=== PATIENT | female | born 1965 | race Caucasian/White ===

== ENCOUNTER → 2022-05-03 | Outpatient (CLI) | payer MEDICAID, SELFPAY ==
--- NOTE | 2022-05-03 09:53 | CDU_ITS ---
Reason For Study: TIA Rt. Velocities/BP Lt. Velocities/BP Prox CCA 83.7/24.2 cm/sec. Prox CCA 105.1/30.3 cm/sec. Mid CCA 84.6/32.7 cm/sec. Mid CCA 114.6/39.7 cm/sec. Dist CCA 69.5/23.2 cm/sec. Dist CCA 92.5/28.6 cm/sec. Prox ICA 76.1/31.7 cm/sec. Prox ICA 76.5/28.1 cm/sec. Mid ICA 102.9/41.3 cm/sec. Mid ICA 83.1/36.9 cm/sec. Dist ICA 101.8/46.8 cm/sec. Dist ICA 102.9/42.4 cm/sec. Rt. ICA/CCA = 102.9/84.6=1.2. Lt. ICA/CCA = 102.9/114.6=0.9. Prox ECA 81.8/19.5 cm/sec. Prox ECA 109.7/22.5 cm/sec. Rt. Vert. 61.0/24.2 cm/sec. Lt. Vert. 42.7/19.1 cm/sec. Right Extracranial There is no significant atherosclerotic plaque noted in the right common carotid artery. There is heterogeneous, irregular atherosclerotic plaque noted in the right internal carotid artery. There is no significant atherosclerotic plaque noted in the right external carotid artery. Antegrade flow is noted in the right vertebral artery. Left Extracranial There is no significant atherosclerotic plaque noted in the left common carotid artery. There is no significant atherosclerotic plaque noted in the left internal carotid artery. There is no significant atherosclerotic plaque noted in the left external carotid artery. Antegrade flow is noted in the left vertebral artery. Procedure Carotid Duplex [id number]. This is a Carotid Duplex examination using B-mode, color flow and specral Doppler. Exam performed in department. VL/Carotid Duplex Ultrasound Interpretation Summary Irregular heterogenous plaque at the proximal right internal carotid artery wit h less than 50% stenosis Less than 50% stenosis right external carotid artery Irregular plaque at the proximal left internal carotid artery with less than 50 % stenosis Less than 50% stenosis left external carotid artery Patent and antegrade vertebrals bilaterally Ordering Physician: Lul Hummel Referring Physician: OTD Performed By: Brigitte Santoro, PERRI, RVT
== END | disposition home or self-care (01) ==
PROVIDERS: Referring Provider Surgery; Visit Provider Surgery
DX: Z86.73 Personal history of transient ischemic attack (TIA), and cerebral infarction without residual deficits (principal)
CPT/HCPCS: 93880

== ENCOUNTER → 2022-05-04 | Outpatient (CLI) | payer MEDICAID, SELFPAY ==
--- NOTE | 2022-05-04 16:47 | STRESSREP_ITS ---
Stress Test Report Date: 05/04/2022 Procedure: Exercise tolerance test/imaging study Indications: Preop evaluation Consent: Per the patient Procedure: The patient exercised on a Chetan protocol for 3 minutes achieving a peak heart rate of 139 bpm (85% predicted maximal heart rate) with a peak blood pressure 172/74 mmHg and a peak MET capacity of 4.6 METs. The baseline ECG demonstrated normal sinus rhythm. The peak exercise ECG demonstrated no significant ischemic changes. EKG during recovery revealed no significant ischemic changes [There were no cardiac dysrhythmias pretest, during exercise, or recovery]. The functional capacity was considered decreased for age. There was [no complaint of chest discomfort during exercise or recovery]. The examination was discontinued secondary to shortness of breath. Impression: 1. Technically adequate (percent predicted maximal heart rate greater than 85%) exercise tolerance test 2. Stress test is negative for exercise-induced EKG changes of ischemia 3. The test test is negative for exercise-induced chest pain 4. Functional capacity is decreased for age 5. Nuclear images pending Myocardial perfusion imaging study: Technique: The patient was injected with 11.9 mCi of technetium 99m Cardiolite and subsequently rest SPECT Cardiolite nuclear imaging was obtained in the hor izontal long, vertical long, and short axis views. The patient exercised on a Chetan protocol. Please see above for details. The patient was injected with 35.2 mCi of technetium 99m Cardiolite and subsequently stress SPECT Cardiolite nuclear imaging was obtained in the horizontal long, vertical long, and short axis views. A gated Cardiolite study at peak stress was obtained. Interpretation: Rest and stress SPECT Cardiolite nuclear imaging status post realignment, normalization, and attenuation correction, demonstrates overall normal myocardial radioisotope uptake. The gated Cardiolite study demonstrates no significant regional wall motion abnormalities. The reported LVEF is greater than 70%. Impression: 1. There is no evidence of significant ischemia or infarction. 2. The gated Cardiolite study reports an LVEF of greater than 70%. This note was generated with [employer] software. It may contain incorrect words, spelling, and punctuation that were not noted in checking the note before signing.
== END | disposition home or self-care (01) ==
LOC: CVS 06:25
PROVIDERS: Visit Provider Surgery
DX: Z01.818 Encounter for other preprocedural examination (principal)
CPT/HCPCS: 78452; 93017; A9500; A4216

== ENCOUNTER → 2022-05-08 | Outpatient (CLI) | payer MEDICAID, SELFPAY ==
--- NOTE | 2022-05-08 10:31 | MRI_ITS ---
STUDY: MRI BRAIN WITH AND WITHOUT CONTRAST REASON FOR EXAM: Female, 56 years old. BILATERAL BREASTS CANCERS ?METS VS 2 PRIMARIES TECHNIQUE: Standardized multiplanar fat and water weighted pulse sequences were obtained. IV 20ml clariscan was administered for the contrast portion of the examination. COMPARISON: None. FINDINGS: Normal size of the ventricles and extra-axial spaces for the patient''s age. There are multiple white matter hyperintensities, distributed throughout the deep white matter tracts of the cerebral hemispheres, consistent with mild to moderate chronic white matter ischemic changes. Normal T2* images of the brain without demonstrated susceptibility artifact. There is no demonstrated hemosiderin stain. There is no evidence for recent intracranial ischemia or other cause of cytotoxic edema on diffusion weighted imaging (DWI). There are no suspicious or invasive brain lesions or abnormal enhancement. No skull lesions are present. Normal bilateral basal ganglia. Normal thalami. There is no extra-axial fluid accumulation. Normal flow voids within the major intracranial circulation suggesting patency by spin echo criteria. Normal venous enhancement. There is no enhancing intra-axial or extra-axial abnormality. Normal sella turcica, pituitary gland, infundibular stalk, optic chiasm and hypothalamus. Normal tectal plate and pineal gland. Normal midbrain, justyn and medulla. Normal cerebellum. Normal basal cisterns. Normal bilateral temporal bones. Normal bilateral internal auditory canals. No demonstrated orbital abnormality, within the constraints of a routine brain study. Normal visualized paranasal sinuses. Normal calvarium and skull base. Normal visualized soft tissue structures. Normal visualized upper cervical spine. MRI/Brain W/WO Contrast IMPRESSION: 1. Mild to moderate chronic ischemic changes of the brain, as described above. 2. No evidence of a primary or metastatic lesion of the brain on the current exam. Electronically Signed: Bear Cox MD at 15:04 EST Reading Location ID and State: [address] [place] [address] , Service support ,
== END | disposition home or self-care (01) ==
PROVIDERS: Referring Provider Surgery; Visit Provider Surgery
DX: C50.911 Malignant neoplasm of unspecified site of right female breast (principal); C50.912 Malignant neoplasm of unspecified site of left female breast
CPT/HCPCS: 70553; A9575

== ENCOUNTER 2022-05-23 15:20 | Observation (INO) | payer MEDICAID, SELFPAY ==
--- NOTE | 2022-05-18 08:44 | EKG12_ITS ---
Test Reason : PREOP Blood Pressure : / mmHG Vent. Rate : 072 BPM Atrial Rate : 072 BPM P-R Int : 164 ms QRS Dur : 082 ms QT Int : 386 ms P-R-T Axes : 027 000 042 degrees QTc Int : 422 ms Normal sinus rhythm Normal ECG Confirmed by ROSA OSBORNE, GUILHERME ([id number]), news editor WENDY RODRIGUEZ ([id number]) on 05/19/2022 10:20:06 AM Referred By: PEPE LARA Confirmed By:GUILHERME LEE MD
[2022-05-23] VITALS (17 sets, daily range): BP systolic 120–160; BP diastolic 61–91; PULSE 62–94; RESP 16–18; TEMP 36.5–37.3; O2SAT 92–98; BMI 35.2; BMI 34.7
--- NOTE | 2022-05-23 | IMM_PTH ---
PATIENT: OMKAR PHILLIPS LOC: MS3 U#:[id number] AGE/SX: 56/F [place] [facility] [place]: Dr. Lul Hummel MD : [id number] BED: 1 DIS: 05/24/2022 SPEC #: [id number] RECD: 05/26/22 14:13 STATUS: VAIBHAV REQ #: [id number] JUAN JOSÉ: 05/23/22 00:[address]: Lul Hummel DEPT: IMMUNOHISTOCHEMISTRY RECD BY: Brittney Perez Tissues: A - Axillary lymph node, NOS C - Axillary lymph node, NOS D - Axillary lymph node, NOS E - Left breast, NOS Procedures: CALPONIN-1 (add) CK7 (add) CK8 (add) E-CAD (add) ER (add) HER2 ORALIA (add) KI-67 (add) VA (add) Pankeratin (initial) Pankeratin (add) P40 (add) PHYSICIAN & [address] [address] SPECIMEN INFORMATION: Tissue Source: A ? Right axillary sentinel lymph node, C ? Left axillary sentinel lymph nodes D ? Additional left axillary sentinel lymph nodes, E ? Left breast Clinical Info: Bilateral breast cancer, ER positive Specimen Number: [id number] A1-A11, C1-C6, D1-D6 and E13 CPT code: 60628 x4, 06241 x26, 69495 x3 METHODOLOGY: Deparaffinized sections of prefer/formalin-fixed tissue or PAP/DQ stained slides are incubated with monoclonal/polyclonal antibodies/oligonucleotide probes. Localization is made via biotin free immunoperoxidase method. Appropriate controls are performed and reacted as expected. Results on target cell population are indicated in the following table: RESULTS: ANTIBODY / CLONE RESULT Block A1 AE1-3 (AE1/AE3/PCK26) negative CK7 (OV-TL12/30) negative Block A2 AE1-3 (AE1/AE3/PCK26) negative CK7 (OV-TL12/30) negative Block A3 AE1-3 (AE1/AE3/PCK26) negative CK7 (OV-TL12/30) negative Block A4 AE1-3 (AE1/AE3/PCK26) negative CK7 (OV-TL12/30) negative Block A5 AE1-3 (AE1/AE3/PCK26) negative CK7 (OV-TL12/30) negative Block A6 AE1-3 (AE1/AE3/PCK26) negative CK7 (OV-TL12/30) negative Block A7 AE1-3 (AE1/AE3/PCK26) negative CK7 (OV-TL12/30) negative Block A8 AE1-3 (AE1/AE3/PCK26) negative CK7 (OV-TL12/30) negative Block A9 AE1-3 (AE1/AE3/PCK26) negative CK7 (OV-TL1230) negative Block A10 AE1-3 (AE1/AE3/PCK26) negative CK7 (OV-TL1230) negative Block A11 AE1-3 (AE1/AE3/PCK26) negative CK7 (OV-TL1230) negative Block C1 AE1-3 (AE1/AE3/PCK26) negative CK7 (OV-TL30) negative Block C2 AE1-3 (AE1/AE3/PCK26) negative CK7 (OV-TL30) negative Block C3 AE1-3 (AE1/AE3/PCK26) negative CK7 (OV-TL30) negative Block C4 AE1-3 (AE1/AE3/PCK26) negative CK7 (OV-TL30) negative Block C5 AE1-3 (AE1/AE3/PCK26) negative CK7 (OV-TL05/19) negative Block C6 AE1-3 (AE1/AE3/PCK26) negative CK7 (OV-TL30) negative Block D1 AE1-3 (AE1/AE3/PCK26) negative CK7 (OV-TL30) negative Block D2 AE1-3 (AE1/AE3/PCK26) negative CK7 (OV-TL30) negative Block D3 AE1-3 (AE1/AE3/PCK26) negative CK7 (OV-TL30) negative Block D4 AE1-3 (AE1/AE3/PCK26) negative CK7 (OV-TL30) negative Block D5 AE1-3 (AE1/AE3/PCK26) negative CK7 (OV-TL1230) negative Block D6 AE1-3 (AE1/AE3/PCK26) negative CK7 (OV-TL1230) negative Block E13 AE1-3 (AE1/AE3/PCK26) positive CK7 (OV-TL1230) positive CK8 (49osggH06) positive E-Cad (ECH-6) positive Calponin-1 (VJ274L) negative P40 (BC28) negative Ki-67 (30-9) positive, 5% MORPHOMETRIC ANALYSIS ER (clone 6F11) >95%, strong intensity VA (clone 16/1E2) 0 Her-2Neu (clone CB11) 0 The prognostic test for HER2 is performed on formalin-fixed paraffin embedded tissue. A 3+ (positive) staining pattern is defined as intense, homogeneous, complete, circumferential membranous staining in >10% of contiguous tumor cells. A similar weak (2+) staining pattern is interpreted as equivocal. JADYN follow-up testing is recommended for all equivocal cases. Positivity/negativity for ER/VA is reported if > or < 1% of the tumor cells are immuno- reactive, respectively. The ASCO/CAP criteria is used for scoring. Reference: Journal of Clinical Oncology, 2013; 31:8095-9970 & 2010; 16:9358-8883. Duration of fixation: 24Hrs; Sample Adequate: Yes. These assays have not been validated on decalcified tissues. Results should be interpreted with caution given the likelihood of false negativity on decalcified specimens. These tests were developed and their performance characteristics determined by [facility]. They may not have been cleared or approved by the U.S. Food and Drug Administration. The FDA has determined that such clearance or approval is not necessary. The above immunohistochemical/dualISH markers are ordered and reviewed by the Pathologist. INTERPRETATION: A. Right axillary sentinel lymph node, biopsy: Thirteen of 13 lymph nodes, negative for carcinoma. C. Left axillary sentinel lymph nodes, biopsy: Two out of two lymph nodes, negative for carcinoma. D. Additional left axillary sentinel lymph nodes, biopsy: One out of one lymph node, negative for carcinoma. E. Left breast, mastectomy: Invasive ductal carcinoma, grade 1. Ductal carcinoma in situ, grade 1. Positive for estrogen receptors (favorable prognostic indicator). Negative for progesterone receptors (unfavorable prognostic indicator). Negative for overexpression of NBM5bdg. AM:adalgisa 05/29/2022 Case has been reviewed in consultation with Dr. Kothari who concurs with the above diagnosis. IDC:SJ
[2022-05-23] MEDS: Lactated Ringers 1,000 ML 15 ML IV ×3 (07:30→14:45)
--- NOTE | 2022-05-23 08:00 | NM_ITS ---
PROCEDURE: NUCLEAR MEDICINE Injection [place] Node - RIGHT breast(s). REASON FOR EXAM: Female, 56 years old. Right breast cancer. TECHNIQUE: [place] node localization using radionuclide methods of the RIGHT breast(s) was performed following subcutaneous administration of 1.1 mCi of of sulfur colloid Tc-99m. COMPARISON STUDIES : NM - None. CR - Not available for review at this time. CT - Not available for review at this time. MR - Not available for review at this time. US - Not available for review at this time. FINDINGS: 1.1 mCi of technetium labeled sulfur colloid was injected subcutaneously in 4 equal aliquots in the perihilar region. NM/Lymph Node Injection Only IMPRESSION: Subcutaneous injection of 1.1 mCi of technetium labeled sulfur colloid in 4 equal aliquots in the periareolar region. Electronically Signed: Chemo Petit MD at 15:31 EST ,
--- NOTE | 2022-05-23 08:00 | NM_ITS ---
STUDY: Breast Specific Gamma Imaging (BSGI) REASON FOR EXAM: Female, 56 years old. Left breast cancer. TECHNIQUE: BSGI molecular imaging of both breasts was performed following subcutaneous administration of 1.1 mCi of Sestamibi Tc-99m. Imaging was started 10 minutes after injection. COMPARISON: None. FINDINGS: 1.1 mCi of technetium labeled sulfur colloid was injected subcutaneously in 4 equal aliquots in the left periareolar region. NM/Lymph Node Injection Only IMPRESSION: Subcutaneous injection of 1.1 mCi of technetium labeled sulfur colloid for left sentinel node imaging Electronically Signed: Chemo Petit MD at 14:59 EST ,
--- NOTE | 2022-05-23 09:50 | PCM.HP.BLA ---
History and Physical Date of Admission: 05/23/22 Chief Complaint: discuss results/surgery Is patient in pain?: No Allergies codeine Allergy (Mild, Verified 05/08/22 09:53) Rash Medications meloxicam 7.5 mg tablet 7.5 mg PO DAILY 04/25/22 [History Confirmed 05/08/22] PFSH Medical History? Bilateral breast cancer Hx TIA/stroke w/o resid Neck mass Neuropathy Surgical History? History of knee surgery History of partial hysterectomy Previous section Family History? Mother Colon cancerBrother Cancer of kidneyGrandfather Lung cancerFather ALC (alcoholic liver cirrhosis) Social History? household members:? children number of children:? 2 current occupational status:? disabled Smoking Status:? Current every day smoker tobacco type: cigarettes Tobacco: How many years used:? 40 how long ago did patient quit smoking:? <[id number], [id number] alcohol intake:? never substance use type:? does not use HPI HPI HPI: 56-year-old female returns to discuss biopsy-proven bilateral breast cancer.? The patient has been seen by Dr. Mayra Zelaya on April 27, 2022.Per his note genetic testing was negative.? As of April 27, 2022 white blood cell count was 9.9 hemoglobin elevated at 16.6 with hematocrit elevated at 49.7 likely secondary to her chronic cigarette smoking.? BUN 17 and creatinine 0.88.? Total bilirubin 0.3 with an AST of 21 and an ALT slightly elevated at 57 and an alkaline phosphatase slightly elevated at 136.? On May 04, 2022 she had a stress test no evidence of significant ischemia or infarction with an ejection fraction of greater than 70%.? On May 03 she had carotid duplex imaging and there was plaque at the proximal right internal carotid artery with less than 50% stenosis and plaque at the proximal left internal carotid artery with less than 50% stenosis.? On May 03, 2022 she had PET/CT imaging.? There is felt to be a 19.9 mm area of increased uptake right breast with an additional area in the lateral right breast.? There is no discussion of any finding of the left breast although she has biopsy-proven in this area.? Bilateral axilla unremarkable. The patient has not yet scheduled for her brain MRI until May 29, 2022.? She has received delayed insurance approval. My previous notes reflect the following Visit Reasons:?INVASIVE DUCTAL CARCINOMA SECOND OPINION Chief Complaint: invasive ductal carcinoma second opinion Is patient in pain?: No Allergies codeine Allergy (Mild, Verified 04/25/22 11:15) Rash Medications meloxicam 7.5 mg tablet 7.5 mg PO DAILY 04/25/22 [History Confirmed 04/25/22] PFSH Medical History?(Updated 04/25/22 @ 11:[address] Lul Hummel MD) Bilateral breast cancer Hx TIA/stroke w/o resid Family History?(Updated 04/25/22 @ 10:33 by Marce Arevalo) Mother Colon cancer Social History Smoking Status:? Current every day smoker tobacco type: cigarettes alcohol intake:? never substance use type:? does not use HPI HPI HPI: 56-year-old female.? She is requesting surgical consultation regarding biopsy-proven bilateral breast cancer.? Patient is age 56.? G2, .? Menarche at age 13.? First child born when she was 30.? Minimal breast-feeding.? Family history negative for breast cancer.? She has not been on any estrogen medication. The patient had detected the right breast lesion by rolling over on the right side detecting acute pain at the right nipple and noted that it was inverted. The patient has been seen by Dr. Lei at [facility] breast surgeon specialist.? The patient is interested if possible at converting her care to us locally here at [facility] It is of note that she is a cigarette smoker.? She states that she has decreased to half a pack per day. She also states that she has been evaluated for TIAs she states that she develops memory lapses.? She does not recall having any evaluation of her carotid arteries.? She is not on any anticoagulant. April 04, 2022 she had bilateral diagnostic mammograms.? This was for right breast pain.? The right breast had irregular masses immediately in the subareolar position with nipple retraction.? Targeted ultrasound was performed.? At the right breast there is 9 o'clock position 2 is 2 adjacent masses 1 measuring 1.1 x 1.1 x 1 cm and the other 1 x 1.6 x 1.2 cm.? There was some concern I guess clinically about a fullness of the right axilla but on ultrasound there were no suspicious findings in the axillary tail and no adenopathy noted on the right.? MRI on the right suggested a 3.61 x 1.58 x 1.05 cm retroareolar mass with a elliptical extension into the central breast measuring 1.66 x 0.73 cm.? No abnormal lymph nodes are MRI. Ultrasound biopsy on the right demonstrates invasive ductal carcinoma.? ER 99%.? GA 70%.? HER2/lanette 1+.? Nuclear grade 2.? No DCIS The left breast 2 o'clock position +13 cm there were suspicious calcifications and distortion.? This measured 1.7 x 0.8 x 1.2 cm..? There is no discussion of the axillary adenopathy on MRI.? With ultrasound there were no findings correlate with the mammogram in the upper outer quadrant and there were minimally prominent left axillary lymph nodes without clear axillary adenopathy.? On MRI at the 2 o'clock position +13 cm there is a 2.27 x 0.93 x 0.55 cm area. Stereotactic core biopsy on the left demonstrates invasive ductal carcinoma with DCIS cribriform.? Estrogen receptor 99%.? GA negative.? HER2 nu 0.? Grade 1 ROS General General: Yes weight change, fatigue and breast cancer; No appetite, colon cancer or weakness HEENT HEENT: No difficulty swallowing, eye injury, eye surgery, swollen glands or hoarseness Endo Endocrine: No thyroid disease, diabetes mellitus, thyroid cancer, Hair loss, heat intolerance or cold intolerance Skin Skin: Yes changing moles; No rash Breast Breast: Yes abnormal mammogram and abnormal US; No left breast lump, right breast lump, nipple discharge, breast pain or breast enlargement Musc Musculoskeletal: Yes back problems and arthritis Cardio Cardiovascular: No murmur, pacemaker, heart disease, atrial fibrillation, high blood pressure, heart attack, heart stent, palpitations, shortness of breat with exertion or chest pain Psych Psychiatric: Yes depression and anxiety; No hearing voices Resp Respiratory: No shortness of breath, No sleep apnea, No cough, No COPD, No asthma, No emphysema and No wheezing Gastro Gastrointestinal: No abdominal pain, Yes nausea or vomiting, No diarrhea, No constipation, No blood in stool, No acid reflux, No hemorrhoids, No ulcers, No gallbladder problem and No black,tarry stools [place] Hematologic: No blood thinners, No blood disorders, No bleeding, No anemia and No blood clots Neuro Neurologic: Yes numbness, Yes tingling, No weakness and Yes other (TIA ) Exam Const General: cooperative, comfortable and no acute distress [facility] Head: normal to inspection Eyes General: appearance normal, both eyes and all related structures Neck Neck: normal visual inspection Chest Other: Right breast: Inversion and flattening of the right nipple with retraction at the 9 o'clock position of the.? Nipple areola.? Palpable mass noted with deep tenderness.? Large pendulous breast noted.? Fibrofatty fullness in the right axilla but no palpable adenopathy. Left breast healed core biopsy incision upper outer quadrant left breast.? No focal mass.? No nipple discharge.? 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 ? ? Orders: Orders Carotid Duplex Ultrasound Today? Z86.73 - Personal history of transient ischemic attack (TIA), and cerebral infarction without residual deficits ? Referrals Oncology ?? C50.911 - Malignant neoplasm of unspecified site of right female breast, C50.912 - Malignant neoplasm of unspecified site of left female breast ? Plan Invasive ductal carcinoma retroareolar a right breast with nipple retraction and MRI suggesting bilobed lesion with dermal attachment.? ER positive.? HER2/lanette 1+.? I do not perceive a means safely of saving the nipple areolar complex.? A sacrifice of the nipple and areola and inclusion of the bilobed retroareolar mass likely would require a partial mastectomy leaving the patient with a intermediate sized breast mound distinctly different from the left.? I am not sure that this provides her cosmetic value.? She might be a better candidate for a nuclear tracer blue dye right axillary sentinel lymph node biopsy with a right total mastectomy On the left she would appear to be a better candidate for stereotactic wire localization upper outer quadrant left breast with nuclear tracer and blue dye left axillary sentinel lymph node biopsy and wire localized upper outer quadrant left breast lumpectomy with subsequent radiotherapy.? However pending the patient's wishes she would be then lopsided if she elects to pursue the mastectomy on the right The patient could opt for a bilateral total mastectomy with bilateral sentinel lymph node biopsies.? She is quite large breasted and she is an ongoing cigarette smoker.? I have cautioned her that this would place her skin flaps at risk.? This would indeed be a significant operative procedure. She will need time to decipher her surgical options.? We have requested hematology oncology consultation.? Once we have that appointment then we will have the patient return for further surgical discussion.? She has had an opportunity to ask and have questions answered.? Appreciate the opportunity of assisting with her surgical care.? We did discussion reconstruction techniques.? The patient is not interested in reconstruction at this time. Copy: Dr. Shah, [facility] Lul Hummel M.D., F.A.C.S ROS General General: Yes weight change, fatigue and breast cancer; No appetite, colon cancer or weakness HEENT HEENT: No difficulty swallowing, eye injury, eye surgery, swollen glands or hoarseness Endo Endocrine: No thyroid disease, diabetes mellitus, thyroid cancer, Hair loss, heat intolerance or cold intolerance Skin Skin: Yes changing moles; No rash Breast Breast: Yes abnormal mammogram and abnormal US; No left breast lump, right breast lump, nipple discharge, breast pain or breast enlargement Musc Musculoskeletal: Yes back problems and arthritis Cardio Cardiovascular: No murmur, pacemaker, heart disease, atrial fibrillation, high blood pressure, heart attack, heart stent, palpitations, shortness of breat with exertion or chest pain Psych Psychiatric: Yes depression and anxiety; No hearing voices Resp Respiratory: No shortness of breath, No sleep apnea, No cough, No COPD, No asthma, No emphysema and No wheezing Gastro Gastrointestinal: No abdominal pain, Yes nausea or vomiting, No diarrhea, No constipation, No blood in stool, No acid reflux, No hemorrhoids, No ulcers, No gallbladder problem and No black,tarry stools [place] Hematologic: No blood thinners, No blood disorders, No bleeding, No anemia and No blood clots Neuro Neurologic: Yes numbness, Yes tingling, No weakness and Yes other (TIA ) Assessment and Plan Assessment and Plan (1) Bilateral breast cancer: ?Status:?Acute ?Qualifiers: ?Breast location:?unspecified site of breast??Estrogen receptor status:?positive??Patient sex:?female? Qualified Code(s):?C50.911 - Malignant neoplasm of unspecified site of right female breast; C50.912 - Malignant neoplasm of unspecified site of left female breast; Z17.0 - Estrogen receptor positive status [ER+] ?Plan: 56-year-old female with biopsy-proven bilateral breast cancer.? Interestingly the breast MRI only demonstrates finding on the right.? No axillary adenopathy.? PET/CT does not demonstrate distant disease.? Brain MRI pending. I have discussed all of this with her.? The patient has already decided that she does not want a mastectomy on the right and breast conservation surgery on the left.? She is requesting bilateral mastectomy with sentinel lymph node biopsy and possible axillary dissection if indicated.? She is declining breast reconstruction. I have discussed technique, benefit, risk and alternatives.? I have again vigorously encouraged the patient to cease her tobacco and she is aware that she is increased operative risk because of this.? She has had an opportunity to ask and have questions answered. We will attempt to obtain her brain MRI sooner so that we can proceed with tentative operative date May 17, 2022.? She is aware that I am anticipating a more prolonged surgery for this procedure. Copy: Dr. Shah [employer] [facility] Lul Hummel M.D., F.A.C.S. Brain MRI did not demonstrate any evidence of metastatic disease. With that as a result we have elected to proceed at patient request with bilateral total mastectomy and bilateral axillary sentinel lymph node biopsy with axillary dissection if indicated. Lul Hummel M.D., F.A.C.S.
[2022-05-23] MEDS: Cefazolin 2 GM in 0.9% Normal Saline 100 ML IV (09:56)
--- NOTE | 2022-05-23 09:58 | DCINST_ITS ---
Discharge Instructions Procedure Breast Surgery Diet Discharge Diet: No restrictions Activity Discharge Activity: May Not Drive (for 2-3 days or while taking narcotic pain meds.) and May Not Shower Lifting Restrictions: 10 pounds for 1 week. Dressing / Incision Call your doctor if your incision/area has: Continuous Slow Oozing, Sudden Increased Bleeding and - (Remove the dressings around the drains daily and clean with a Q-tip and peroxide and reapply gauze and tape. Are sure that the tape is helping secure the drains in place.) Call your doctor if you observe: Fever of 101 or Higher Suture Line Care: Avoid Pulling/Pushing and Avoid Pinching/Bending Remove Dressing in: 1 day Follow Up Care Test Results: Test results from this visit will be discussed in further detail at your follow- up appointment, if applicable. Discharge Plan Admission Attending Provider: Lul Hummel Primary Care Provider: PEPE LARA Discharge Orders/Prescriptions Prescriptions: No Action meloxicam 7.5 mg tablet 7.5 mg PO DAILY Referrals / Follow Up: PEPE LARA [Other] Disposition Disposition (needs filled in before D/C Order can be placed): Home, Self Care
--- NOTE | 2022-05-23 10:00 | AXNB_PTH ---
PATIENT: OMKAR PHILLIPS LOC: MS3 U#:[id number] AGE/SX: 56/F [place] [facility] [place]: Dr. Lul Hummel MD : 1965 BED: 1 DIS: 05/24/2022 SPEC #: [id number] RECD: 05/23/22 12:21 STATUS: VAIBHAV BARROW #: [id number] JUAN JOSÉ: 05/23/22 10:[address]: Lul Hummel DEPT: SURGICAL PATHOLOGY RECD BY: Brittney Perez Tissues: A - Axillary lymph node, NOS B - Right breast, NOS C - Axillary lymph node, NOS D - Axillary lymph node, NOS E - Left breast, NOS Procedures: Frozen Section (charge) Frozen Section Add'l ([facility]) Surgery Specimen Level V HEADER OPERATION: Breast mastectomy with sentinel lymph node biopsy PRE-OP DIAGNOSIS: Bilateral breast cancer, ER positive TISSUE SUBMITTED: A ? [place] lymph nodes right breast, FS, B ? Right breast, suture padron lateral aspect of right breast, C - Left axillary sentinel lymph nodes, FS, D - Left axillary additional sentinel lymph node, FS, E ? Left breast, suture padron lateral aspect FROZEN SECTION DIAGNOSIS A. Multiple right axillary sentinel lymph nodes, biopsy: Thirteen out of 13 lymph nodes negative for carcinoma. C. Left axillary sentinel lymph nodes, biopsy: Two out of two lymph nodes negative for carcinoma. D. Left axillary additional sentinel lymph node, biopsy: One out of one lymph node negative for carcinoma. AM:adalgisa 05/23/2022 MICROSCOPIC DIAGNOSIS A. Right axillary sentinel lymph nodes, biopsy: Thirteen out of 13 lymph nodes negative for carcinoma. B. 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 See cancer synoptic report below. C. Left axillary sentinel lymph nodes, biopsy: Two out of two lymph nodes negative for carcinoma. D. Left axillary additional sentinel lymph node, biopsy: One out of one lymph node negative for carcinoma. E. Left breast, mastectomy: Invasive ductal carcinoma. Ductal carcinoma in situ. See cancer synoptic report below. AM: 05/29/2022 COMMENT A, C, D & E - Immunohistochemistry ([id number]) supports the above diagnosis. B - INVASIVE BREAST CANCER SUMMARY: Procedure - mastectomy Specimen: Type - mastectomy Size ? 27 x 20 x 7 cm Laterality ? right breast Tumor: Site ? right mid breast Size ? 2 x 2 x 1.5 cm Histologic type - invasive ductal carcinoma. Focality - single focus of carcinoma. Histologic Grade ([place] grade): Glandular/tubular differentiation - score 2 Nuclear pleomorphism - score 2 Mitotic count ? score 1 Overall grade - 1 (score of 5) Ductal carcinoma in situ: Estimated quantification (% of tumor volume) ? 1-2% Number of blocks - 2 of 12 blocks Architectural pattern - cribriform Nuclear grade ? grade 2 Necrosis ? not present Lobular carcinoma in situ (LCIS) ? not present Tumor extension: Skin ? free of carcinoma Nipple ? free of invasive carcinoma and in situ carcinoma. Skeletal muscle ? not present Margins: Distance of invasive carcinoma from closest (posterior) margin ? 4.07 cm Distance of in situ carcinoma from closest (posterior) margin ? 4.0 cm Lymph nodes: Total number of sentinel lymph nodes examined - 13 Total number of lymph nodes examined (sentinel and nonsentinel) - 13 No evidence of macrometastases, micrometastases or isolated tumor cells. (See specimen A). Treatment effect - unknown Lymphvascular invasion ? not identified Additional pathologic findings - none Ancillary studies - previously performed on section of tumor at [facility] 04/10/2022 ([id number]). ER ? 99%, strong intensity CT ? 70%, moderate intensity Her2 lanette ? low positive (1+) Ki67 ? 16% Microcalcifications ? not identified Clinical history ? Mass of breast. PATHOLOGIC STAGE: T1c N0(sn) Mx E. INVASIVE BREAST CANCER SUMMARY: Procedure - mastectomy Specimen: Type - mastectomy Size ? 27 x 20 x 7 cm Laterality ? left breast Tumor: Site ? upper outer quadrant Size ? 3.0 x 3.0 x 2.5 mm Histologic type - invasive ductal carcinoma. Focality - single focus of carcinoma. Histologic Grade (Sandra grade): Glandular/tubular differentiation - score 3 Nuclear pleomorphism - score 2 Mitotic count ? score 1 Overall grade - 1 (score of 5) Ductal carcinoma in situ: Estimated quantification (% of tumor volume) ? 1% Number of blocks - 2 of 12 blocks Architectural pattern - cribriform Nuclear grade ? grade 1 Necrosis ? not present Lobular carcinoma in situ (LCIS) ? not present Tumor extension: Skin ? free of carcinoma Nipple ? free of invasive carcinoma and in situ carcinoma. Skeletal muscle ? not identified Margins: Distance of invasive carcinoma from closest (superior) margin ? 2.5 cm Distance of in situ carcinoma from closest (superior) margin ? 2.5 cm Lymph nodes: Total number of sentinel lymph nodes examined - 3 Total number of lymph nodes examined (sentinel and nonsentinel) - 3 No evidence of macrometastases, micrometastases or isolated tumor cells. (See specimens C & D). Treatment effect - unknown Lymphvascular invasion ? not identified Additional pathologic findings ? fibrocystic change. Focal intraductal hyperplasia without atypia. Banal microcalcifications. Ancillary studies - previously performed on section of tumor at [facility] 04/10/2022 ([id number]). ER ? 99%, strong intensity CT ? 0% Her2 lanette ? 0 Ki67 ? no expression Microcalcifications ? present in invasive carcinoma and benign breast parenchyma. Clinical history ? Mass of breast. PATHOLOGIC STAGE: T1 N0(sn) Mx The above summary is in compliance with [employer] [place] [employer] (CAP) Cancer Protocols Checklist and [place] Joint Committee on Cancer (AJCC), Staging Manual, 8th Ed. Case has been reviewed in consultation with Dr. Kothari who concurs with the above diagnosis. IDC:[id number] MICROSCOPIC DESCRIPTION Slides are reviewed. GROSS DESCRIPTION A - Received fresh for frozen section consultation labeled with the patient's name is a specimen designated sentinel lymph nodes from right breast. The specimen consists of 14 irregular fragments of otero-yellow fatty tissue ranging in size from 0.5 to 13 cm. Dissection reveals 13 nodules ranging in size from 0.5 to 4 cm. The nodules are submitted in their entirety for frozen section consultation in 11 blocks as follows: 1 - one lymph node, 2 - one lymph node, 3-6 - two lymph nodes in each block, 7 - one lymph node bisected, 8 - one lymph node bisected, 9-11 - one lymph node, serially sectioned. / AM:adalgisa 05/23/2022 B - Received in fixative is one container labeled with the patient's name and designated right breast. The specimen consists of a mastectomy measuring 27 x 20 x 7 cm and weighing 1900 gm. An ellipse of skin and centrally located nipple and areola is present. The skin fragment measures 26.5 x 2.5 cm. A suture area is present 7 cm lateral to the nipple. No cutaneous lesions are identified. The nipple and areola are grossly unremarkable. An elongated fragment of detached fibrofatty tissue is present free in the container measuring 18 x 4 x 1.5 cm. No cutaneous lesions are identified. Serial sections do not reveal mass lesions in this fragment. Serial sections reveal a firm, spiculated, white-otero lesion measuring 2 x 2 x 1.5 cm and containing a centrally located cystic cavity measuring 1.5 cm located in the breast at 4?cm from closest posterior margin. Serial sections of the remainder of the breast parenchyma does not reveal mass lesions. Automatic Spinning Lathe [employer] sections are submitted as follows: 1 - nipple and areola, 2??perpendicular superior margin, 3 - perpendicular inferior margin, 4 - perpendicular medial margin, 5??perpendicular lateral margin, 6 - perpendicular posterior margin, 7-9 - mass, totally submitted, 1012??remainder of mass and uninvolved areas adjacent to mass. Note, sections are submitted after additional fixation. / AM:adalgisa 05/24/2022 C - Received fresh for frozen section consultation labeled with the patient's name is a specimen designated sentinel lymph nodes from left breast. The specimen consists of four irregular fragments of otero-yellow fatty tissue ranging in size from 0.5 to 8 cm. Dissection reveals two nodules measuring 2.5 and 4 cm each, respectively. The lymph nodes are submitted in their entirety for frozen section consultation as follows: 1 & 2 - sentinel lymph node at suture, bisected, 3-6 - one lymph node, serially sectioned. / AM:adalgisa 05/23/2022 D - Received fresh for frozen section consultation labeled with the patient's name is a specimen designated additional sentinel lymph node from left breast. The specimen consists of an irregular fragment of yellow fatty tissue measuring 8.5 x 4.5 x 1 cm. Dissection reveals one fatty nodule measuring 4 cm in greatest dimension. The nodule is serially sectioned and totally submitted for frozen section consultation in six blocks. / AM:adalgisa 05/23/2022 E - Received in fixative is one container labeled with the patient's name and designated left breast. The specimen consists of a mastectomy measuring 27 x 20 x 7 cm and weighing 1700 gm. An ellipse of grossly unremarkable skin, nipple and areola is present. The skin fragment measures 23 x 12 cm. Serial sections of the upper outer quadrant of the breast reveals an irregular area of whitish fibrosis measuring 1?x 1 x 0.6 cm. This is located 2.5 cm from its closest (superior) margin of excision. Serial sections reveal the subareolar region with bluish discoloration. In the upper outer quadrant is an irregular, nondistinct lesion measuring 1 x 0.8 x 0.5 cm located 2 cm from the anterior margin of excision. Note, sections are submitted after additional fixation as follows: 1 - nipple and areola, 2 - perpendicular superior margin, 3??perpendicular inferior margin, 4 - perpendicular medial margin, 5 - perpendicular lateral margin, 6??perpendicular deep margin, 7-12 - area of bluish-green discoloration, 13 & 14 - lesion from upper outer quadrant, totally submitted. / AM:adalgisa 05/24/2022 TC:0 CPT: 82321 x5, 64928 x3, 68109 x19 ADDENDUM ADDENDUM ADDENDUM ADDENDUM ADDENDUM ADDENDUM ADDENDUM ADDENDUM ADDENDUM 07/21/2022 10:05 ADDENDUM 07/21/2022 10:05 ADDENDUM 07/21/2022 10:05 ADDENDUM 07/21/2022 10:05 ADDENDUM 07/21/2022 10:05 An order for Oncotype testing was received from Dr. Jo. This necessitated case review, block and slide selection by pathologist at [facility]. B. Breast Cancer Recurrence Score = 19 E. Breast Cancer Recurrence Score = 2 Results of the complete Oncotype testing ([employer] report) are viewable in EMR under: Reports - Pathology - Lab Pathology Report, Scanned.
[2022-05-23] MEDS: Isosulfan Blue 1% 5 ML Vial (10:30)
--- NOTE | 2022-05-23 15:10 | OP.PCM_ITS ---
Report of Operation Date of Procedure: 05/23/22 Pre-Operative Diagnosis: Bilateral upper outer quadrant invasive ductal carcino ma of the breast Post-Operative Diagnosis: Same Surgery/Procedure Performed:: Right total mastectomy with attempted nuclear tracer in isosulfan blue dye sentinel node biopsy with failure of lymphatic tracking and conversion to a right axillary lymph node dissection Left total mastectomy with left axillary blue dye and nuclear tracer sentinel lymph node biopsy Description of Surgical Findings:: Timeout informed consent was obtained. The patient was taken to the operating room placed upon the table. Ancef 2 g were given intravenously. At the 4-hour elkin she received another gram of Ancef IV. Bilateral arms were carefully wrapped with soft roll and placed the right angles to the table. Bilateral breasts were sterilely prepped and draped. There is a small sore periareolar on the right that was treated with the chlorhexidine prep and then treated with an OpSite dressing. Bilateral transverse elliptical excisions were marked. The left chest wall and breast were then covered and a elliptical excision of the right breast performed. The patient had significant fibrofatty breast the superior flap was created some very slight thin blue dye was noted at the dermal level but upon dissecting toward the axilla it could not be followed. The neoprobe was additionally used and there was absolutely no signals whatsoever coming from the axilla. I completed the upper flap and dissected down past the axillary fascia and again clinically by palpation and by visualization inspected for lymph nodes. There was no blue dye tracking or nuclear tracer but I was able to palpate some nodes so I then did a level 1 2 axillary dissection identifying the axillary vein the intercostal EKG brachial continues nerve to the upper arm the latissimus dorsi and thoracodorsal nerves and long thoracic nerve available. The axillary packet was dissected free preserving the intercostal percutaneous nerve. Tissue was then dissected inferiorly. I submitted that tissue for then continue to work on the breast. Inferior flap was created with electrocautery as was the superior flap and then the right breast was taken off the chest wall with the pectoralis fascia. Hemostasis attained with electrocautery. The wound was irrigated hemostasis was intact 2 stab incision was made inferior and lateral to 15 round drains were exited the axillary drain was shortened in length the inferior drain was placed from the inferior flap and superiorly. Wound edges were then approximated I had to take some excess skin from the inferior flap then meticulously with interrupted 3-0 Vicryl completed the flaps to the chest wall with an attempt to eradicate as much space as possible. The skin edges were then placed with some deep dermal stitches of 3-0 Vicryl and subdermal tissues with 3-0 Vicryl. The drains were connected to suction. Steri-Strips applied. Gowns gloves changed we did he had over top dressings and expose the left breast. The left breast was treated in a similar fashion with elliptical excision to do the mastectomy the superior flap created but on the left the blue dye tracking and nuclear tracer could be identified I then dissected down into the axilla and identified 2 smaller nodes which were removed and then based upon nuclear tracer identification dissected out another node. Those 3 were sent for analysis the largest node measured 4 cm all of these nodes were negative. It is of note that the frozen section of the lymph nodes from the right axilla were also negative. I could not palpate few more axillary nodes on the left as 3 and initial nodes clearly identified with blue dye tracking the one clearly enlarged were all negative I elected not to proceed with an axillary lymph node dissection on the left at this setting. As on the right the inferior flap was created little extra skin from the inferior flap was taken the breast tissue was dissected off the pectoralis major with the fascia. Silk sutures were placed in the lateral aspect of each breast as they were submitted for analysis. The chest wall is on the right was irrigated with sterile water hemostasis was intact to stab incision. And 2 drains 15 round drains were placed as on the right the flaps were repleted to the chest wall with interrupted 3-0 Vicryl subdermal tissue approximated and skin edges approximated over 3-0 Vicryl. Steri-Strips Telfa bulky dry dressings applied. The drains were connected to close bulb suction. Sponge and instrument and needle counts were reported to the surgeon to be correct. No apparent complications. She tolerated procedure well was taken to the recovery room in satisfactory condition. Right chest specimen total mastectomy and axillary lymph node dissection x13 Left chest specimen total mastectomy and sentinel lymph nodes x3 15 round MELISSA drains x2 on the right and x2 on the left Total blood loss 150 cc Synoptic Portion: Right breast Element Response Options Operation performed with curative intent. Yes Tracer(s) used to identify sentinel nodes in the upfront surgery (non- neoadjuvant) setting (select all that apply). Isosulfan blue dye and radiotracer Tracer(s) used to identify sentinel nodes in the neoadjuvant setting (select all that apply). Not applicable All nodes (colored or non-colored) present at the end of a dye-filled lymphatic channel were removed. No. As noted no blue dye tracing or nuclear tracer could be identified on the right All significantly radioactive nodes were removed. Axillary lymph node disse ction performed. All palpably suspicious nodes were removed. Yes all palpable nodes removed Biopsy-proven positive nodes marked with clips prior to chemotherapy were identified and removed. Not applicable Synoptic Portion: Left breast Element Response Options Operation performed with curative intent. Yes Tracer(s) used to identify sentinel nodes in the upfront surgery (non- neoadjuvant) setting (select all that apply). Isosulfan blue dye and radiotracer Tracer(s) used to identify sentinel nodes in the neoadjuvant setting (select all that apply). Not applicable All nodes (colored or non-colored) present at the end of a dye-filled lymphatic channel were removed. Yes All significantly radioactive nodes were removed. Yes All palpably suspicious nodes were removed. All suspicious nodes removed yes, nonsuspicious adenopathy remains Biopsy-proven positive nodes marked with clips prior to chemotherapy were identified and removed. Not applicable Synoptic Portion: Right axilla Element Response Options Operation performed with curative intent. Yes Resection was performed within the boundaries of the axillary vein, chest wall (serratus anterior), and latissimus dorsi. He has Nerves identified and preserved during dissection (select all that apply) long thoracic nerve of [place] and thoracodorsal nerve and branches of the intercostal brachial cutaneous nerves Level III nodes were removed. No Lul Hummel M.D., F.A.C.S. Surgeon: Lul Hummel Type of Anesthesia: General Anesthesiologist: Lee Ann Richards
[2022-05-23] MEDS: HYDROcodone Bitartrate/Apap 5/325 Tablet PO ×2 (19:41→23:50)
[2022-05-23] MEDS: Morphine 2 MG/ML Syringe IV (20:53)
[2022-05-24 04:37] VITALS: BP 150/71; PULSE 73; RESP 18; TEMP 36.6; O2SAT 95
[2022-05-24] MEDS: HYDROcodone Bitartrate/Apap 5/325 Tablet PO ×2 (05:02→08:30)
--- NOTE | 2022-05-24 06:40 | PCM.PN.SRG ---
Subjective Subjective Patient has no complaints. She feels like she is doing very well. Objective Data Objective Data Vital Signs: Vital Signs Temp Pulse Resp BP Pulse Ox O2 Del Method O2 Flow Rate 98 F 73 18 150/71 H 95 Room Air 2 05/24/22 04:37 05/24/22 04:37 05/24/22 04:37 05/24/22 04:37 05/24/22 04:37 05/24/22 04:37 05/23/22 23:54 Oxygen Flow Rate (L/min) 2 Oxygen Delivery Method Room Air Weight: 222 lb 0.088 oz Body Mass Index (BMI) 34.7 Intake & Output: Intake and Output for Last 24 Hours 05/22/22 05/23/22 05/24/22 23:59 23:59 23:59 Intake Total 2200.25 / 2200.25 1800 / 1800 Output Total 175 / 175 1802 / 1802 Balance 2024. / -2 / -2 Radiography Diagnostic Testing: Radiology Impression [place] Node 05/23/22 08:00 IMPRESSION: Subcutaneous injection of 1.1 mCi of technetium labeled sulfur colloid in 4 equal aliquots in the periareolar region. Electronically Signed: Chemo Petit MD at 15:31 EST , [place] Node 05/23/22 08:00 IMPRESSION: Subcutaneous injection of 1.1 mCi of technetium labeled sulfur colloid for left sentinel node imaging Electronically Signed: Chemo Petit MD at 14:59 EST , Physical Exam Resp normal respiratory effort Resp Narrative: Bilateral mastectomy incisions appear to be clean dry and viable. MELISSA drains demonstrating light bloody fluid. Assessment & Plan Assessment/Plan (1) Bilateral breast cancer: QUALIFIERS: Breast location: unspecified site of breast Estrogen receptor status: positive Patient sex: female Qualified Code(s): C50.911 - Malignant neoplasm of unspecified site of right female breast; C50.912 - Malignant neoplasm of unspecified site of left female breast; Z17.0 - Estrogen receptor positive status [ER+] PLAN: Excellent progress. Plan discharge today after dressing change. Lul Hummel M.D., F.A.C.S.
[2022-05-24 07:48] VITALS: O2SAT 93
[2022-05-24 08:28] VITALS: BP 179/86; PULSE 62; RESP 18; TEMP 36.7; O2SAT 93
[2022-05-24] MEDS: Meloxicam 7.5 MG Tablet PO (08:30)
--- NOTE | 2022-05-24 09:55 | WOUNDNOTE ---
dressings to chest removed. there was minimal drainage noted on the old dressing. incisions are well approximated with steri strips in place. minimal ecchymosis noted. patient has [address] 2 on each side. each drain insertion site was cleansed with peroxide. new drain sponges placed and covered with a 4x4 dressing. secured entire dressing and drains with paper tape. ABD pads applied to incisions and secured with minimal tape. reapplied the soft cotton roll and secured with safety pins. pt tolerated well. friend present in room as well. friend had recent bilateral mastectomy with drains as well. plans to assist patient at home. pt very appreciative. denies questions. pt sent with form to record drainage and pt is aware to bring form to follow up appt.
--- NOTE | 2022-05-24 11:13 | PHA.DC.MR ---
Pharmacy Service has performed discharge medication reconciliation for this patient. The patient's discharge medication list was reviewed for discrepancies and discrepancies were resolved. Medication education papers prepared, patient discharged before I was able to certified lactation counselor. Medications reviewed. Home Medications meloxicam 7.5 mg tablet 7.5 mg PO DAILY 04/25/22 hydrocodone-acetaminophen 5-325mg 5mg-325mg 1 - 2 tab PO Q4H PRN PRN PAIN 1-10 2 days #10 tabs 05/24/22
== END 2022-05-24 10:45 | disposition home or self-care (01) ==
LOC: MS3 05-24 06:48
PROVIDERS: Admitting Provider Surgery; Visit Provider Surgery
PROC: (CPT 19307; principal; 2022-05-23 09:45)
DX: C50.411 Malignant neoplasm of upper-outer quadrant of right female breast (principal); C50.412 Malignant neoplasm of upper-outer quadrant of left female breast; F17.210 Nicotine dependence, cigarettes, uncomplicated; Z17.0 Estrogen receptor positive status [ER+]; Z79.899 Other long term (current) drug therapy; G62.9 Polyneuropathy, unspecified; Z86.73 Personal history of transient ischemic attack (TIA), and cerebral infarction without residual deficits; M19.90 Unspecified osteoarthritis, unspecified site; R22.1 Localized swelling, mass and lump, neck; R53.83 Other fatigue
CPT/HCPCS: 19303; 38525; 38792; 88305; 88307; 88331; 88332; 88341; 88342; 93005; 96374; 99221; 99252; A9541; J7120; G0378; G0463; J2405; Q9968

== ENCOUNTER → 2022-08-02 | Outpatient (CLI) | payer MEDICAID, SELFPAY ==
--- NOTE | 2022-08-02 08:18 | BD_ITS ---
STUDY: DUAL ENERGY X-RAY ABSORPTIOMETRY / DXA REASON FOR EXAM: Female, 57 years old. SCREENING TECHNIQUE: Bone Mineral Density (BMD) measurements of lumbar spine and bilateral hips were obtained. COMPARISON: None. FINDINGS: Lumbar Spine (L1-L4): g/cm2 (0.928) / T-score (-1.1) / Z-score (0.2) Findings are suggestive of normal bone density with a low fracture risk. Left Femur Total: g/cm2 (0.787) / T-score (-1.3) / Z-score (-0.4) Left Femoral Neck: g/cm2 (0.684) / T-score (-1.5) / Z-score (-0.3) Right Femur Total: g/cm2 (0.868) / T-score (-0.6) / Z-score (0.2) Right Femoral Neck: g/cm2 (0.815) / T-score (-0.3) / Z-score (0.9) BD/Dexa Bone Density Study IMPRESSION: The patient is considered osteopenic as outlined below according to World [place] Organization (WHO) criteria with a low fracture risk. Reference Information: The T-score is the number of standard deviations above or below the standard which is normal for young adults at their peak bone mineral density. The World Health Organization (WHO) interprets the T-scores as follows: Above -1 Normal bone density Between -1 and -2.5 Osteopenia Equal to / or below -2.5 Osteoporosis As a practical clinical guideline, osteopenia may be graded as follows: Mild -1 through -1.5 Moderate -1.6 through -2.0 Severe -2.1 through -2.4 The Z-score is the number of standard deviations above or below age-matched controls. A Z-score of less than -1.5 would be considered abnormal. References: 1. NIH Osteoporosis and Related Bone Diseases www osteo.org 2. International Society for Clinical Densitometry www iscd.org 3. National Osteoporosis Foundation www nof.org Electronically Signed: Chemo Petit MD at 13:01 EDT ,
== END | disposition home or self-care (01) ==
LOC: OPBD 08:07
PROVIDERS: Visit Provider Internal Medicine Hematology & Oncology
DX: Z78.0 Asymptomatic menopausal state (principal)
CPT/HCPCS: 77080

== ENCOUNTER 2022-08-29 08:49 | Outpatient (RCR) | payer MEDICAID, SELFPAY ==
--- NOTE | 2022-08-29 16:34 | HP.OTEVAL ---
Patient's Visit Information OMKAR PHILLIPS is a 57 year old F, referred to Occupational Therapy by Dr. Lul Hummel MD, with a diagnosis of lymphedema. Date of Evaluation: 08/29/22 Occupational Therapist: Hina Ayala, ABBEYR/Hedy, CHT - Subjective This 57 year old female was seen for OT eval with dx with lymphedema s/p mastectomy on May.23. pt has had complication under left UE wound due to open incision, pt had wound vac. and now incision still is slightly open on left breast. Pt states she did not have to have radiation- pt has concerns with swelling against chest wall. pt would like to know what she can do to work on her scar and pec/chest mobility. - Pain chest wall 1 Pain Intensity Range: 0, 2 - Lymphedema (Circumferential Measure) MCP: right 19cm left 19cm Wrist: right 16cm left 15.5cm Lower forearm: right 18.5cm left 19cm Largest forearm: right 25cm left 24.5cm Elbow: right 25.5cm left 26cm Largest humerus: right 30cm left 31cm Axcillary: right 33cm 34cm Upper Exremity Comments: pt reports tightness at incisions from mastectomy-. burning sensation that will start at axillary region and trail distal in triceps region - Quick DASH-Disab of Arm,Shoulder& Hand Quick DASH Score: 27.2725 - Goals Demonstrate adequate knowledge of self-massage by 2nd week: Yes Demonstrate adequate knowledge skin care/prec by 2nd week: Yes Demonstrate adequate knowledge therapeutic exercises by d/c: Yes Select approp compression garment w/donning/care/wear by d/c: Yes Voice need to replace compression garment every 4-6mo by dc: Yes - Rehabilitation General Assessment: pt demo with scar adhesions to chest wall increasing symptoms of burning/pain and tightness. this limits pts IND with ADl and IADls. Pt would benefit from skilled OT services 2-4 visits to ed. pt on scar mt, ROM and self manual lymph massage to mtg symptoms. Today therapist ed, pt on ROM , scar mtg, self manual massage saira. and use of compression tank vs sports bra. pt demo understanding and agree to POC. - Anticipated Interventions Scar Care, Sensory Stimulation, Education re assistive Equipment, Education re Diagnosis, Education re Life-long lymphedema Management, Education re Skin Care and Precautions, Education re Self Massage Techniques, Education re Correct Donning Tech,Care&Wearing Sched Comp Garments, Home Program - Visit Plan TEXT: Thank you for the opportunity to evaluate your patient. For Medicare and Medicare HMO plans, please review the plan of care and approve it. It will need to be FAXED BACK to us at [phone] for Medicare purposes. Please let me know if there are questions or concerns regarding this plan of care. Physician Signature: Date:
--- NOTE | 2022-12-20 15:48 | HP.OTDCNRP_ITS ---
Patient Information Patient Information: OMKAR PHILLIPS was seen in my office for initial evaluation on 08/29/22. The following Plan of Care was established for this patient: Anticipated Interventions Anticipated Interventions: Scar Care, Sensory Stimulation, Education re ass istive Equipment, Education re Diagnosis, Education re Life-long lymphedema Management, Education re Skin Care and Precautions, Education re Self Massage Techniques, Education re Correct Donning Tech,Care&Wearing Sched Comp Garments and Home Program Last Seen Last Seen: This patient was last seen in our office 08/29/22. Pertinent comments regarding their Occupational therapy will appear below: pt was seen for initial OT eval only. No further apts scheduled and due to time lapse in services pt d/c. At this point I will be discontinuing this patient from occupational therapy. I would be happy to see this patient again in the future if found appropriate by the physician. Thank you! Hina Ayala, OTR/L, CHT
== END 2022-08-29 19:00 | disposition home or self-care (01) ==
LOC: OT 08:49
PROVIDERS: Referring Provider Surgery; Visit Provider Surgery
DX: I89.0 Lymphedema, not elsewhere classified (principal)
CPT/HCPCS: 97165